=== PATIENT | female | born 1980 | race Caucasian/White ===

== ENCOUNTER → 2018-07-31 | Outpatient (CLI) | payer SELFPAY ==
--- NOTE | 2018-07-31 16:36 | PCVCIMAG ---
APPROVED REPORT Laterality: Bilateral Patient Location: Out-Patient Indications Dizziness and Vertigo Doppler Spectral Velocity Analysis PSV / EDVPSV / EDV ECA (R) 142 / 24 cm/sECA (L) 82 / 26 cm/s dICA (R) 89 / 35 cm/sdICA (L) 50 / 21 cm/s Prateek (R) 76 / 27 cm/smICA (L) 62 / 24 cm/s pICA (R) 62 / 20 cm/spICA (L) 70 / 19 cm/s Bulb (R) 90 / 18 cm/sBulb (L) 91 / 24 cm/s dCCA (R) 121 / 22 cm/sdCCA (L) 144 / 27 cm/s mCCA (R) 124 / 22 cm/smCCA (L) 152 / 33 cm/s Vert (R) 52 / 16 cm/sVert (L) 57 / 14 cm/s ICA/CCA 0.74ICA/CCA 0.49 Real Time B-Mode Imaging Vert. (R)AntegradeVert. (L)Antegrade Findings The right carotid bulb has no significant plaque. The right proximal internal carotid artery shows no significant stenosis. The right common carotid artery shows no significant stenosis. The right external carotid artery shows no significant stenosis. The left carotid bulb has no significant plaque. The left proximal internal carotid artery shows no significant stenosis. The left common carotid artery shows no significant stenosis. The left external carotid artery shows no significant stenosis. Conclusion 1. Normal bilateral carotid duplex scanning. 2. Antegrade vertebral flow. 3. Incidental finding: Bilateral thyroid nodules
--- NOTE | 2018-07-31 16:57 | PCVCIMAG ---
APPROVED REPORT Study performed: 07/31/2018 16:12:09 Exam: Stress Echocardiogram Indication: Dizziness, pre syncope Patient Location: Echo lab Stress Nurse: Robyn Mcgraw RN Status: routine Ht: 5 ft 4 in HR: 90 bpm BP: 120/79 mmHg Rhythm: NSR Procedure The patient underwent an Exercise Stress Test using the Cameron Protocol. Blood pressure, heart rate, and EKG were monitored. An Echocardiogram was performed by weight reducing technician in four stages in quad fashion. At peak stress, four selected images were obtained and placed side by side with resting images for comparison. Stress Test Details Stress Test: Exercise stress testing was performed using a Cameron protocol. HR Resting HR: 90 bpmMax Heart Rate (APMHR): 180 bpm Max HR Achieved: 173 bpmTarget HR (85% APMHR): 153 bpm % of APMHR: 96 Recovery HR: 109 bpm HR response to stress: Accelerated HR response to stress BP Resting BP: 120/79 mmHg Max BP: 140/79 mmHg Recovery BP: 120/70 mmHg BP response to stress: Normal blood pressure response to stress. ECG Resting ECG: Sinus Rhythm Stress ECG: Sinus Tachycardia Recovery ECG: Sinus Tachycardia Clinical Reason for Termination: Maximal effort Stress Symptoms: dizziness Exercise duration: 6 min sec Highest Stage Achieved: Stage 2: 2.5 mph at 12% grade. Exercise capacity: 7.00 METs Overall Exercise Capacity for Age: Poor Pre-Stress Echo The resting Echocardiogram showed normal left ventricular contractility with an estimated Ejection Fraction of about 55-60%. Normal wall motion in all segments on baseline images. Post-Stress Echo The stress Echocardiogram showed normal left ventricular contractility with an estimated Ejection Fraction of about 60-65%. Normal augmentation of wall motion in all segments on post stress images. Clinical No clinical or ECG evidence for ischemia. Conclusion Clinical Response: Non-ischemic Exercise Capacity: Below Average Stress ECG Response: Non-ischemic Stress Echo Images: Non-ischemic The left ventricle is normal in size and wall thickness in both the rest and stress images. <Conclusion> The left ventricle is normal in size and wall thickness in both the rest and stress images.
== END | disposition home or self-care (01) ==
LOC: PCVCIMAG 15:31
PROVIDERS: ATTEND Family Medicine
DX: R42 Dizziness and giddiness (principal); R55 Syncope and collapse
CPT/HCPCS: 93325; 93351; 93880